=== PATIENT | male | born 1970 | race Caucasian/White ===

== ENCOUNTER 2020-05-13 07:47 | Outpatient (REF) | payer MEDICARE, SELFPAY ==
[2020-05-13 09:25] LABS: Anion Gap 11 (12-20); Blood Urea Nitrogen 8 mg/dL (9-16); Carbon Dioxide 26 mmol/L (22-29); Chloride 106 mmol/L (96-108); Cholesterol 224 mg/dL; Estimated Glomerular Filt Rate > 60; Glucose Fasting 120 mg/dL (60-99); HDL Cholesterol 66 mg/dL; LDL Cholesterol Calculated 141 mg/dl; Potassium 4.3 mmol/L (3.3-5.1); Sodium 139 mmol/L (135-145); Triglycerides 88 mg/dL
== END 2020-05-13 07:48 | disposition home or self-care (01) ==
LOC: HO.LAB 07:47
PROVIDERS: PCP Family Medicine; Visit Provider Family Medicine
DX: I10 Essential (primary) hypertension (principal); E78.00 Pure hypercholesterolemia, unspecified; M79.10 Myalgia, unspecified site; Z79.899 Other long term (current) drug therapy
CPT/HCPCS: 36415; 80051; 80061; 82550; 82565; 82947; 84520

== ENCOUNTER 2020-11-24 08:47 | Outpatient (REF) | payer MEDICARE, SELFPAY ==
[2020-11-24 10:50] LABS: Alanine Aminotransferase 35 U/L (0-40); Anion Gap 11 (12-20); Aspartate Amino Transferase 58 U/L (5-37); Blood Urea Nitrogen 9 mg/dL (9-16); Carbon Dioxide 24 mmol/L (22-29); Chloride 106 mmol/L (96-108); Estimated Glomerular Filt Rate > 60; Glucose Fasting 134 mg/dL (60-99); Potassium 4.3 mmol/L (3.3-5.1); Sodium 137 mmol/L (135-145)
[2020-11-24 11:03] LABS: Estimated Average Glucose 120 mg/dL; Hemoglobin A1c % 5.8 %
== END 2020-11-24 08:48 | disposition home or self-care (01) ==
LOC: HO.10HDL 08:47
PROVIDERS: Visit Provider Family Medicine
DX: K75.81 Nonalcoholic steatohepatitis (NASH) (principal); I10 Essential (primary) hypertension; R73.9 Hyperglycemia, unspecified
CPT/HCPCS: 36415; 80051; 82565; 82947; 83036; 84450; 84460; 84520

== ENCOUNTER → 2021-07-20 13:48 | Outpatient (BNVA) | payer MEDICARE, SELFPAY | PROVIDERS: PCP Family Medicine; Referring Provider Family Medicine; Visit Provider Surgery | DX: Z01.818 Encounter for other preprocedural examination (principal); K42.9 Umbilical hernia without obstruction or gangrene; E66.01 Morbid (severe) obesity due to excess calories; I10 Essential (primary) hypertension; E78.00 Pure hypercholesterolemia, unspecified; M96.1 Postlaminectomy syndrome, not elsewhere classified; H81.09 Meniere's disease, unspecified ear; F10.20 Alcohol dependence, uncomplicated | CPT/HCPCS: 99202 ==

== ENCOUNTER 2021-07-22 10:31 | Outpatient (REF) | payer MEDICARE, SELFPAY ==
[2021-07-22 12:20] LABS: Anion Gap 12 (12-20); Blood Urea Nitrogen 11 mg/dL (9-16); Carbon Dioxide 23 mmol/L (22-29); Chloride 105 mmol/L (96-108); Estimated Glomerular Filt Rate > 60; Potassium 3.9 mmol/L (3.3-5.1); Sodium 136 mmol/L (135-145)
== END 2021-07-22 10:32 | disposition home or self-care (01) ==
LOC: HO.LAB 10:31
PROVIDERS: PCP Family Medicine; Visit Provider Family Medicine
DX: I10 Essential (primary) hypertension (principal)
CPT/HCPCS: 36415; 80051; 82565; 84520

== ENCOUNTER 2021-07-27 11:13 | Outpatient (REF) | payer MEDICARE, SELFPAY ==
[2021-07-27 11:59] LABS: Estimated Average Glucose 91 mg/dL; Hemoglobin A1c % 4.8 %
[2021-07-27 12:31] LABS: Alanine Aminotransferase 39 U/L (0-40); Albumin Level 3.2 g/dL (3.5-5.0); Alkaline Phosphatase 92 U/L (39-117); Aspartate Amino Transferase 113 U/L (5-37); Bilirubin Direct 2.8 mg/dL (0.0-0.5); Bilirubin Total 6.9 mg/dL (0.0-1.0); Total Protein 8.4 g/dL (6.5-8.0)
== END 2021-07-27 11:14 | disposition home or self-care (01) ==
LOC: HO.LAB 11:13
PROVIDERS: PCP Family Medicine; Visit Provider Surgery
DX: F10.20 Alcohol dependence, uncomplicated (principal); K75.81 Nonalcoholic steatohepatitis (NASH); R73.9 Hyperglycemia, unspecified
CPT/HCPCS: 36415; 80076; 83036

== ENCOUNTER → 2021-08-03 10:53 | Outpatient (BNVA) | payer MEDICARE, SELFPAY | PROVIDERS: PCP Family Medicine; Referring Provider Family Medicine; Visit Provider Surgery | DX: K42.9 Umbilical hernia without obstruction or gangrene (principal); K75.81 Nonalcoholic steatohepatitis (NASH); F10.20 Alcohol dependence, uncomplicated; E66.01 Morbid (severe) obesity due to excess calories; I10 Essential (primary) hypertension; E78.00 Pure hypercholesterolemia, unspecified; M96.1 Postlaminectomy syndrome, not elsewhere classified; H81.09 Meniere's disease, unspecified ear; R79.89 Other specified abnormal findings of blood chemistry | CPT/HCPCS: 99212 ==

== ENCOUNTER 2021-10-08 10:03 | Outpatient (REF) | payer MEDICARE, SELFPAY ==
[2021-10-08 10:50] LABS: INTERNATIONAL NORM RATIO 1.9 (0.9-1.1); Prothrombin Time 22.3 SEC (10.0-13.1)
[2021-10-08 10:52] LABS: Partial Thromboplastin Time 38.6 SEC (24.1-38.0)
[2021-10-08 11:59] LABS: Alanine Aminotransferase 26 U/L (0-40); Albumin Level 3.3 g/dL (3.5-5.0); Alkaline Phosphatase 77 U/L (39-117); Aspartate Amino Transferase 74 U/L (5-37); Bilirubin Direct 1.8 mg/dL (0.0-0.5); Bilirubin Total 4.3 mg/dL (0.0-1.0)
[2021-10-12 15:37] LABS: FIB-ALT 24 U/L (9-46); FIB-Alpha-2-Macroglobulin 249 mg/dL (106-279); FIB-Apolipoprotein A1 163 mg/dL (94-176); FIB-GGT 153 U/L (3-95); FIB-Haptoglobin 19 mg/dL (43-212); FIB-Total Bilirubin 3.5 mg/dL (0.2-1.2); Liver Fibrosis Score 0.91; Liver Fibrosis Stage F4; Nec Inflam Act Grade A0-A1; Nec Inflam Act Score 0.23
== END 2021-10-08 10:04 | disposition home or self-care (01) ==
LOC: HO.10HDL 10:03
PROVIDERS: Visit Provider Family Medicine
DX: R79.89 Other specified abnormal findings of blood chemistry (principal)
CPT/HCPCS: 36415; 80076; 81596; 85610; 85730

== ENCOUNTER 2021-11-30 09:48 | Outpatient (REF) | payer MEDICARE, SELFPAY ==
[2021-11-30 11:14] LABS: Alanine Aminotransferase 27 U/L (0-40); Albumin Level 3.3 g/dL (3.5-5.0); Alkaline Phosphatase 85 U/L (39-117); Anion Gap 12 (12-20); Aspartate Amino Transferase 69 U/L (5-37); Bilirubin Direct 1.4 mg/dL (0.0-0.5); Bilirubin Total 3.3 mg/dL (0.0-1.0); Blood Urea Nitrogen 8 mg/dL (9-16); Carbon Dioxide 23 mmol/L (22-29); Chloride 109 mmol/L (96-108); Estimated Glomerular Filt Rate > 60; Potassium 4.2 mmol/L (3.3-5.1); Sodium 140 mmol/L (135-145); Total Protein 7.9 g/dL (6.5-8.0)
[2021-12-02 14:56] LABS: IgA 594 mg/dL (47-310); IgG 2468 mg/dL (600-1640); IgM 665 mg/dL (50-300)
== END 2021-11-30 09:49 | disposition home or self-care (01) ==
LOC: HO.10HDL 09:48
PROVIDERS: Visit Provider Family Medicine
DX: R79.89 Other specified abnormal findings of blood chemistry (principal); I10 Essential (primary) hypertension
CPT/HCPCS: 36415; 80051; 80076; 82565; 82784; 84520; 86334